=== PATIENT | female | born 1970 | race Caucasian/White ===

== ENCOUNTER → 2018-01-20 08:56 | Outpatient (CLI) | payer OTHER, SELFPAY ==
[2018-01-20 10:58] LABS: Add Manual Diff / Slide Review NO; Basophils Percent Auto 0.5 % (0-2); Hematocrit 35.7 % (36-46); Hemoglobin 12.2 g/dL (12.0-16.0); Lymphocytes Percent Auto 23.7 % (25-40); Mean Corpuscular Volume 91.2 fL (80-100); Monocytes Percent Auto 4.3 % (3-14); Neutrophils Absolute Auto 4000 /uL (3000-5900); Neutrophils Percent Auto 67.5 % (50-75); Platelet Count 274 X10^3/uL (150-400); Red Blood Cell Count 3.92 X10^6/uL (4.0-5.2); Red Cell Distribution Width 14.2 % (11.6-14.8); White Blood Cell Count 5.9 X10^3/uL (4.5-11.0)
[2018-01-20 11:25] LABS: Alanine Aminotransferase 20 IU/L (9-52); Albumin 3.7 g/dL (3.5-5.0); Albumin Globulin Ratio 1.1 (1.0-2.8); Alkaline Phosphatase 94 U/L (38-126); Aspartate Aminotransferase 20 IU/L (14-36); BUN Creatinine Ratio 22.5 (6-22); Bilirubin Total 0.5 mg/dL (0.2-1.3); Blood Urea Nitrogen 18 mg/dL (7-17); Calcium 9.1 mg/dL (8.4-10.2); Carbon Dioxide 28 mmol/L (22-32); Chloride 101 mmol/L (98-107); Estimated Glomerular Filt Rate > 60.0 mL/min (>60); Globulin 3.5 g/dL (1.7-4.1); Glucose 85 mg/dL (70-100); HEMOLYSIS < 15 (0-50); Potassium 4.3 mmol/L (3.4-5.1); Sodium 137 mmol/L (137-145); Total Protein 7.2 g/dL (6.3-8.2)
== END ==
PROVIDERS: PCP Internal Medicine; Visit Provider Physician Assistant
DX: L40.8 Other psoriasis (principal); Z79.899 Other long term (current) drug therapy
CPT/HCPCS: 36415; 80053; 85025

== ENCOUNTER → 2018-07-18 07:16 | Outpatient (CLI) | payer OTHER, SELFPAY ==
[2018-07-18 07:53] LABS: Add Manual Diff / Slide Review NO; Basophils Percent Auto 1.2 % (0-2); Hematocrit 36.9 % (36-46); Hemoglobin 12.3 g/dL (12.0-16.0); Lymphocytes Percent Auto 33.3 % (25-40); Mean Corpuscular HGB Conc 33.4 % (30-36); Mean Corpuscular Hemoglobin 30.8 PG (26-34); Mean Corpuscular Volume 92.3 fL (80-100); Monocytes Percent Auto 6.1 % (3-14); Neutrophils Absolute Auto 2500 /uL (3000-5900); Neutrophils Percent Auto 52.4 % (50-75); Platelet Count 315 X10^3/uL (150-400); Red Cell Distribution Width 14.1 % (11.6-14.8); White Blood Cell Count 4.7 X10^3/uL (4.5-11.0)
[2018-07-18 08:02] LABS: Alanine Aminotransferase 25 IU/L (9-52); Albumin 3.9 g/dL (3.5-5.0); Albumin Globulin Ratio 1.3 (1.0-2.8); Alkaline Phosphatase 87 U/L (38-126); Aspartate Aminotransferase 23 IU/L (14-36); Bilirubin Total 0.4 mg/dL (0.2-1.3); Blood Urea Nitrogen 18 mg/dL (7-17); Calcium 8.9 mg/dL (8.4-10.2); Carbon Dioxide 26 mmol/L (22-32); Chloride 104 mmol/L (98-107); Cholesterol 175 mg/dL (140-199); Estimated Glomerular Filt Rate > 60.0 mL/min (>60); Glucose 93 mg/dL (70-100); HDL Cholesterol 69 mg/dL (40-60); HEMOLYSIS < 15 (0-50); LDL Cholesterol Calculated 78 mg/dL (<100); Sodium 141 mmol/L (137-145); Total Protein 6.9 g/dL (6.3-8.2); Triglycerides 142 mg/dL (35-150)
[2018-07-18 08:28] LABS: Thyroid Stimulating Hormone 0.75 uIU/mL (0.47-4.68)
== END ==
PROVIDERS: PCP Internal Medicine; Visit Provider Internal Medicine
DX: E03.9 Hypothyroidism, unspecified (principal); L40.9 Psoriasis, unspecified
CPT/HCPCS: 36415; 80053; 80061; 84443; 85025

== ENCOUNTER → 2018-11-17 11:49 | Outpatient (CLI) | payer OTHER, SELFPAY ==
--- NOTE | 2018-11-17 | DI.MG.S_ITS ---
BILATERAL DIGITAL SCREENING MAMMOGRAM 3D/2D WITH CAD: 11/17/2018 CLINICAL: Routine screening. Comparison is made to exams dated: 07/20/2017 mammogram, 05/29/2015 mammogram, and 03/16/2013 mammogram - [facility]. The tissue of both breasts is heterogeneously dense. This may lower the sensitivity of mammography. Current study was also evaluated with a Computer Aided Detection (CAD) system. No significant masses, calcifications, or other findings are seen in either breast. There has been no significant interval change. IMPRESSION: NEGATIVE There is no mammographic evidence of malignancy. A 1 year screening mammogram is recommended. This exam was interpreted at Station ID: [id number]. NOTE: For mammograms, a report in lay terms will be sent to the patient. Approximately 15% of breast malignancies will not be visualized mammographically. In the management of a palpable breast mass, a negative mammogram must not discourage biopsy of a clinically suspicious lesion. Electronically Signed By: Mika brand/mukul:11/17/2018 12:54:39 letter sent: Normal Exam ACR BI-RADS Category 1: Negative 3341F
== END ==
PROVIDERS: PCP Internal Medicine; Visit Provider Internal Medicine
DX: Z12.31 Encounter for screening mammogram for malignant neoplasm of breast (principal)
CPT/HCPCS: 77063; 77067

== ENCOUNTER → 2019-04-18 07:14 | Outpatient (CLI) | payer OTHER, SELFPAY ==
[2019-04-18 08:46] LABS: Add Manual Diff / Slide Review NO; Basophils Absolute Auto 0 /uL (0-100); Basophils Percent Auto 0.5 % (0-2); Eosinophils Absolute Auto 300 /uL (0-450); Eosinophils Percent Auto 5.7 % (2-4); Hematocrit 35.8 % (36-46); Lymphocytes Absolute Auto 1500 /uL (1100-4500); Lymphocytes Percent Auto 25.4 % (25-40); Mean Corpuscular HGB Conc 33.6 % (30-36); Mean Corpuscular Hemoglobin 31.3 PG (26-34); Mean Corpuscular Volume 93.3 fL (80-100); Monocytes Absolute Auto 300 /uL (0-900); Monocytes Percent Auto 4.2 % (3-14); Neutrophils Absolute Auto 3900 /uL (1500-7000); Neutrophils Percent Auto 64.2 % (50-75); Platelet Count 276 X10^3/uL (150-400); Red Blood Cell Count 3.83 X10^6/uL (4.0-5.2); Red Cell Distribution Width 14.2 % (11.6-14.8)
[2019-04-18 09:18] LABS: Alanine Aminotransferase 15 IU/L (9-52); Albumin 3.7 g/dL (3.5-5.0); Albumin Globulin Ratio 1.2 (1.0-2.8); Alkaline Phosphatase 97 U/L (38-126); Aspartate Aminotransferase 15 IU/L (14-36); Bilirubin Total 0.4 mg/dL (0.2-1.3); Blood Urea Nitrogen 18 mg/dL (7-17); Calcium 9.5 mg/dL (8.4-10.2); Carbon Dioxide 26 mmol/L (22-32); Chloride 102 mmol/L (98-107); Estimated Glomerular Filt Rate > 60.0 mL/min (>60); Glucose 88 mg/dL (70-100); HEMOLYSIS < 15 (0-50); Potassium 4.6 mmol/L (3.4-5.1); Sodium 137 mmol/L (137-145); Total Protein 6.7 g/dL (6.3-8.2)
== END ==
PROVIDERS: PCP Internal Medicine; Visit Provider Physician Assistant
DX: L40.8 Other psoriasis (principal)
CPT/HCPCS: 36415; 80053; 85025

== ENCOUNTER → 2019-11-02 07:52 | Outpatient (CLI) | payer OTHER, SELFPAY ==
--- NOTE | 2019-11-02 | DI.CT.S_ITS ---
PROCEDURE: CT SINUS SCREEN WO CON INDICATIONS: Acute sinusitis, unspecified TECHNIQUE: Noncontrast 3.0 mm axial images acquired from the frontal sinuses to the mid-sella, with coronal and sagittal reformats. For radiation dose reduction, the following was used: automated exposure control, adjustment of mA and/or kV according to patient size. COMPARISON: None. FINDINGS: Image quality: Excellent. Maxillary Sinuses: No bony remodeling or destruction. Sinuses are clear. Ethmoid Air Cells: No bony remodeling or destruction. Sinuses are clear. Sphenoid Sinuses: No bony remodeling or destruction. Sinuses are clear. Frontal Sinuses: No bony remodeling or destruction. Sinuses are clear. Ostiomeatal Complexes: Ostiomeatal complexes are patent. No Suresh cells. Miscellaneous: Visualized intra-orbital contents are normal. No alayna bullosa or paradoxical turbinate curvature. There is mild nasal septal deviation to the left. Midportion between the anterior and posterior nasal septum is a leftward osteophyte at the septum measuring 6 mm, somewhat narrowing the left nasal airway. IMPRESSION: Prominent leftward osteophyte off the nasal septum somewhat narrows the left nasal airway. Mild leftward nasal septal deviation. 2. Otherwise negative sinus CT. Dictated by: Garcia Carrillo M.D. on 11/02/2019 at 9:09 Approved by: Garcia Carrillo M.D. on 11/02/2019 at 9:13
== END ==
PROVIDERS: PCP Internal Medicine; Referring Provider Internal Medicine; Visit Provider Internal Medicine
DX: J01.90 Acute sinusitis, unspecified (principal); J34.2 Deviated nasal septum
CPT/HCPCS: 70486

== ENCOUNTER → 2020-08-09 09:56 | Outpatient (CLI) | payer OTHER, SELFPAY ==
--- NOTE | 2020-08-09 | DI.MG.S_ITS ---
BILATERAL DIGITAL SCREENING MAMMOGRAM 3D/2D WITH CAD: 08/09/2020 CLINICAL: Routine screening. Comparison is made to exams dated: 11/17/2018 mammogram, 07/20/2017 mammogram, 05/29/2015 mammogram, and 03/16/2013 mammogram - [facility]. There are scattered fibroglandular elements in both breasts. Current study was also evaluated with a Computer Aided Detection (CAD) system. No significant masses, calcifications, or other findings are seen in either breast. There has been no significant interval change. IMPRESSION: NEGATIVE There is no mammographic evidence of malignancy. A 1 year screening mammogram is recommended. This exam was interpreted at Station ID: [id number]. NOTE: For mammograms, a report in lay terms will be sent to the patient. Approximately 15% of breast malignancies will not be visualized mammographically. In the management of a palpable breast mass, a negative mammogram must not discourage biopsy of a clinically suspicious lesion. Electronically Signed By: Mika brand/mukul:08/11/2020 07:37:31 letter sent: Normal Exam ACR BI-RADS Category 1: Negative 3341F
== END ==
PROVIDERS: PCP Internal Medicine; Referring Provider Internal Medicine; Visit Provider Internal Medicine
DX: Z12.31 Encounter for screening mammogram for malignant neoplasm of breast (principal)
CPT/HCPCS: 77063; 77067

== ENCOUNTER → 2020-09-26 11:10 | Outpatient (CLI) | payer OTHER, SELFPAY ==
--- NOTE | 2020-09-26 | DI.RAD.S_ITS ---
PROCEDURE: XR ANKLE RT MIN 3V INDICATIONS: RIGHT ANKLE PAIN TECHNIQUE: 3 views of the ankle were acquired. COMPARISON: [facility], , ANKLE 3 VIEWS LEFT, 03/24/2010, 20:14. FINDINGS: Bones: No fractures or dislocations. Ankle mortise is normally aligned. No suspicious bony lesions. Soft tissues: No tibiotalar joint effusion. Achilles tendon appears normal. IMPRESSION: No trauma found. Dictated by: Donnie Chester M.D. on 09/26/2020 at 12:49 Approved by: Donnie Chester M.D. on 09/26/2020 at 12:50
--- NOTE | 2020-09-26 | DI.US.S_ITS ---
PROCEDURE: US THYROID INDICATIONS: NODULE TECHNIQUE: Real-time scanning was performed of the thyroid gland, with image documentation. COMPARISON: None. FINDINGS: Right: Thyroid lobe measures 4 x 1.2 x 1.4 cm. Left: Thyroid lobe measures 3.5 x 1.1 x 1 cm. Isthmus: 2.2 mm thick. The thyroid demonstrates a generalized heterogeneous appearance, yet without focal nodules identified. IMPRESSION: Heterogeneous thyroid, yet without discrete nodules seen on either side. Dictated by: Timothy Kiran M.D. on 09/26/2020 at 12:15 Approved by: Timothy Kiran M.D. on 09/26/2020 at 12:16
== END ==
PROVIDERS: PCP Internal Medicine; Referring Provider Internal Medicine; Visit Provider Internal Medicine
DX: E04.1 Nontoxic single thyroid nodule (principal); M25.571 Pain in right ankle and joints of right foot
CPT/HCPCS: 73610; 76536

== ENCOUNTER → 2021-08-10 07:49 | Outpatient (CLI) | payer OTHER, SELFPAY ==
--- NOTE | 2021-08-10 | DI.MG.S_ITS ---
BILATERAL DIGITAL SCREENING MAMMOGRAM 3D/2D WITH CAD: 08/10/2021 CLINICAL: Routine screening. Comparison is made to exams dated: 08/09/2020 mammogram, 11/17/2018 mammogram, and 07/20/2017 mammogram - [facility]. There are scattered fibroglandular elements in both breasts. Current study was also evaluated with a Computer Aided Detection (CAD) system. There is a possible asymmetry in the left breast anterior depth central to the nipple seen on the craniocaudal view only. No other significant masses, calcifications, or other findings are seen in either breast. IMPRESSION: INCOMPLETE: NEEDS ADDITIONAL IMAGING EVALUATION The possible asymmetry in the left breast is indeterminate. A diagnostic mammogram and ultrasound is recommended. This exam was interpreted at Station ID: [id number]. NOTE: For mammograms, a report in lay terms will be sent to the patient. Approximately 15% of breast malignancies will not be visualized mammographically. In the management of a palpable breast mass, a negative mammogram must not discourage biopsy of a clinically suspicious lesion. Electronically Signed By: Sahil Sue M.D., jr/mukul:08/10/2021 11:33:36 letter sent: Additional Imaging Needed ACR BI-RADS Category 0: Incomplete 3340F
== END ==
PROVIDERS: PCP Internal Medicine; Referring Provider Internal Medicine; Visit Provider Internal Medicine
DX: Z12.31 Encounter for screening mammogram for malignant neoplasm of breast (principal)
CPT/HCPCS: 77063; 77067

== ENCOUNTER → 2021-10-20 08:45 | Outpatient (CLI) | payer OTHER, SELFPAY ==
--- NOTE | 2021-10-20 | DI.MG.S_ITS ---
UNILATERAL LEFT DIGITAL DIAGNOSTIC MAMMOGRAM 3D/2D WITH ADDITIONAL VIEWS: 10/20/2021 CLINICAL: Additional evaluation requested from prior study. Comparison is made to exams dated: 08/10/2021 mammogram, 08/09/2020 mammogram, 11/17/2018 mammogram, and 07/20/2017 mammogram - [facility]. There are scattered fibroglandular elements in left breast. There is a possible asymmetry in the left breast anterior depth central to the nipple seen on the craniocaudal view only. This is less prominent. No other significant masses or calcifications are seen in the breast. IMPRESSION: INCOMPLETE: NEEDS ADDITIONAL IMAGING EVALUATION The possible asymmetry in the left breast remains indeterminate. A targeted ultrasound is recommended and will immediately follow. This exam was interpreted at Station ID: [id number]. NOTE: For mammograms, a report in lay terms will be sent to the patient. Approximately 15% of breast malignancies will not be visualized mammographically. In the management of a palpable breast mass, a negative mammogram must not discourage biopsy of a clinically suspicious lesion. Electronically Signed By: Sergio Sánchez M.D. slc/:10/20/2021 09:25:41 ACR BI-RADS Category 0: Incomplete 3340F
--- NOTE | 2021-10-20 | DI.US.S_ITS ---
LIMITED ULTRASOUND OF LEFT BREAST: 10/20/2021 CLINICAL: Patient returns today to evaluate an asymmetry in the left breast. Comparison is made to exams dated: 10/20/2021 mammogram, 08/10/2021 mammogram, 08/09/2020 mammogram, 11/17/2018 mammogram, 07/20/2017 mammogram, and 05/29/2015 mammogram - [facility]. Color flow and real-time ultrasound of the left breast were performed. Molina scale images of the real-time examination were reviewed. No significant abnormalities were seen sonographically in the left breast in the region of possible asymmetry. IMPRESSION: NEGATIVE There is no sonographic evidence of malignancy. A 1 year screening mammogram is recommended. Exam findings were conveyed to the patient. This exam was interpreted at Station ID: [id number]. Electronically Signed By: Sergio Sánchez M.D. slc/:10/20/2021 10:47:27 letter sent: Normal Exam Ultrasound BI-RADS: 1 Negative
== END ==
PROVIDERS: PCP Internal Medicine; Referring Provider Internal Medicine; Visit Provider Internal Medicine
DX: R92.8 Other abnormal and inconclusive findings on diagnostic imaging of breast (principal)
CPT/HCPCS: 76642; 77065; G0279

== ENCOUNTER → 2022-11-27 09:49 | Outpatient (CLI) | payer OTHER, SELFPAY ==
--- NOTE | 2022-11-27 09:50 | DI.MG.S_ITS ---
BILATERAL DIGITAL SCREENING MAMMOGRAM 3D/2D WITH CAD: 11/27/2022 CLINICAL: Routine screening. Comparison is made to exams dated: 10/20/2021 mammogram, 08/10/2021 mammogram, 08/09/2020 mammogram, and 11/17/2018 mammogram - [facility]. There are scattered areas of fibroglandular density in both breasts (category b / 25%-50% glandular tissue). Current study was also evaluated with a Computer Aided Detection (CAD) system. No significant masses, calcifications, or other findings are seen in either breast. There has been no significant interval change. IMPRESSION: NEGATIVE There is no mammographic evidence of malignancy. A 1 year screening mammogram is recommended. Based on the Tyrer Cuzick model (a risk assessment model) the patient's lifetime risk is 7.6% and her 10 year risk is 1.8%. According to the ACR, ACS, and NCCN guidelines, an annual breast MRI exam along with mammogram is recommended if the patient's lifetime risk is 20% or greater. This exam was interpreted at Station ID: [id number]. NOTE: For mammograms, a report in lay terms will be sent to the patient. Approximately 15% of breast malignancies will not be visualized mammographically. In the management of a palpable breast mass, a negative mammogram must not discourage biopsy of a clinically suspicious lesion. Electronically Signed By: Mika brand/mukul:11/29/2022 07:32:27 letter sent: Normal Exam ACR BI-RADS Category 1: Negative 3341F
== END ==
PROVIDERS: PCP Internal Medicine; Referring Provider Internal Medicine; Visit Provider Internal Medicine
DX: Z12.31 Encounter for screening mammogram for malignant neoplasm of breast (principal)
CPT/HCPCS: 77063; 77067

== ENCOUNTER 2023-03-18 08:21 | Day surgery (SDC) | payer OTHER, SELFPAY ==
[2023-03-18 08:37] VITALS: BP 122/81; PULSE 76; RESP 16; TEMP 35.9; O2SAT 99; BMI 33.3
[2023-03-18] MEDS: LACTATED RINGERS 1,000 ML 84 ML IV (08:50)
--- NOTE | 2023-03-18 09:36 | P.HP_ITS ---
History of Present Illness History of Present Illness Date Patient Seen: 03/18/23 Time Patient Seen: 09:36 Chief complaint: Colonoscopy, family history of colon cancer Narrative: 52-year-old female presents today for her 1st screening colonoscopy. Her father from colon cancer as well as his father. She has done fecal stool samples in the past and always had those come back negative. She denies any concerning symptoms no bleeding changes in bowel habits or cramping abdominal pains. This is the 1st time she is ever even had anesthesia. She has no further questions or concerns in his ready to proceed. [facility] Medical History (Updated 03/18/23 @ 09:38 by Phyllis Correa MD) Eczema Encounter for screening colonoscopy Hypothyroidism Seasonal allergies Family History (Updated 03/23/16 @ 00:00 by Conversion Provider) Brother Age: 53 Diabetes mellitus Father Age: 80 Congestive heart failure Arrhythmia Anemia Grandmother Stroke Mother Age: 78 Hypertension Grandfather Stomach cancer Grandmother Mental health problem Sister Age: 57 Diabetes mellitus Social History household members: spouse Smoking Status: Never smoker alcohol intake: never Meds Home Medications and Allergies Home Medications Medication Instructions Recorded Confirmed Type pimecrolimus 1 % topical cream 1 donis topical QDAY ##0 06/07/17 07/19/18 History (Elidel) levothyroxine 75 mcg tablet 75 mcg PO QAM #90 tabs 07/19/18 03/18/23 Rx (Synthroid) drospirenone 3 mg-ethinyl 1 tab PO QDAY #112 tabs 08/02/18 03/18/23 Rx estradiol 0.03 mg tablet (Ocella) Allergies Allergy/AdvReac Type Severity Reaction Status Date / Time No Known Drug Allergies Allergy Verified 03/18/23 08:33 Exam Vital Signs (past 8 hours): - 03/18/23 08:37 Temperature 96.6 F L Pulse Rate 76 Respiratory Rate 16 Blood Pressure 122/81 Pulse Oximetry 99 Oxygen Delivery Method Room Air Oxygen Delivery Method Room Air Const General: cooperative, healthy appearing and comfortable HENMT Head: normal to inspection Eyes General: appearance normal, both eyes and all related structures Resp Effort & Inspection: normal respiratory effort and able to speak in complete sentences GI Inspection: normal to inspection Palpation: soft and No tender Assessment & Plan Assessment and plan (1) Family history of colon cancer in father: Status: Acute (2) Encounter for screening colonoscopy: Status: Acute Assessment & Plan narrative: Presents today for screening colonoscopy I discussed the risks benefits and alternatives including but not limited to perforation of the colon and an incomplete exam she fully understands these risks and would like to proceed.
[2023-03-18 10:22] VITALS: BP 135/86; PULSE 69; RESP 12; TEMP 36.2; O2SAT 100
[2023-03-18 10:31] VITALS: BP 134/91; PULSE 72; RESP 24; O2SAT 100
--- NOTE | 2023-03-18 10:34 | PM.OP.COLON ---
Operative Date/Time/Diagnoses Date of procedure: 03/18/23 Time of procedure: 10:34 Pre-op diagnosis: Colon cancer screening, family history of colon cancer in father Post-op diagnosis: same Procedure & Clinicians Study performed: Colonoscopy Same procedure as scheduled: Yes Indications: Colon cancer screening, family history in father Surgeon: Phyllis Correa Procedure Notes Procedure in detail: Patient was taken to the endoscopy suite and placed in a left lateral decubitus position. A time-out was performed. With the help of anesthesiologist conscious sedation was induced and monitored throughout the case. A digital rectal exam was performed and there were no masses or strictures. The colonoscope was introduced into the anal canal and advanced through to the cecum. A photograph of the appendiceal orifice was obtained. The bowel prep was good [place] bowel prep score of 2. There were a few scattered diverticula in the sigmoid colon which were photographed. There was some tortuosity within the sigmoid colon as well. The scope was then withdrawn for a total of 12 minutes and no polyps were seen. The scope was then retroflexed and a photograph of the internal hemorrhoidal piles was obtained. Specimen(s): none sent Complications: none Post-procedure Recommendations: Colonoscopy in 5 years Plan for aftercare: Because of diverticula I do recommend a daily fiber supplement. Because of your family history of colon cancer usually every 5 year screening intervals are recommended though you have no polyps that were seen today.
[2023-03-18 10:36] VITALS: BP 125/88; PULSE 64; RESP 12; O2SAT 98
[2023-03-18 10:39] VITALS: BP 126/49; PULSE 66; RESP 10; O2SAT 100
[2023-03-18 10:44] VITALS: BP 127/79; PULSE 65; RESP 14; O2SAT 100
== END 2023-03-18 11:01 | disposition home or self-care (01) ==
PROVIDERS: PCP Internal Medicine; Referring Provider Surgery; Visit Provider Surgery
PROC: 0DJD8ZZ Inspection of Lower Intestinal Tract, Via Natural or Artificial Opening Endoscopic (ICD-10-PCS; CPT 45378; principal; 2023-03-18 09:30)
DX: Z12.11 Encounter for screening for malignant neoplasm of colon (principal); Z80.0 Family history of malignant neoplasm of digestive organs; K57.30 Diverticulosis of large intestine without perforation or abscess without bleeding
CPT/HCPCS: 45378; J2704

== ENCOUNTER → 2024-01-30 16:26 | Outpatient (CLI) | payer OTHER, SELFPAY ==
--- NOTE | 2024-01-30 16:27 | DI.MG.S_ITS ---
BILATERAL DIGITAL SCREENING MAMMOGRAM 3D/2D WITH CAD: 01/30/2024 CLINICAL: Routine screening. Comparison is made to exams dated: 11/27/2022 mammogram, 08/10/2021 mammogram, 08/09/2020 mammogram, and 11/17/2018 mammogram - [facility]. There are scattered areas of fibroglandular density in both breasts (category b / 25%-50% glandular tissue). Current study was also evaluated with a Computer Aided Detection (CAD) system. No significant masses, calcifications, or other findings are seen in either breast. There has been no significant interval change. IMPRESSION: NEGATIVE There is no mammographic evidence of malignancy. A 1 year screening mammogram is recommended. Based on the Tyrer Cuzick model (a risk assessment model) the patient's lifetime risk is 7.8% and her 10 year risk is 1.9%. According to the ACR, ACS, and NCCN guidelines, an annual breast MRI exam along with mammogram is recommended if the patient's lifetime risk is 20% or greater. This exam was interpreted at Station ID: [id number]. NOTE: For mammograms, a report in lay terms will be sent to the patient. Approximately 15% of breast malignancies will not be visualized mammographically. In the management of a palpable breast mass, a negative mammogram must not discourage biopsy of a clinically suspicious lesion. Electronically Signed By: Sergio vides/mukul:02/02/2024 16:00:05 letter sent: Normal Exam ACR BI-RADS Category 1: Negative 3341F
== END ==
PROVIDERS: PCP Internal Medicine; Referring Provider Internal Medicine; Visit Provider Internal Medicine
DX: Z12.31 Encounter for screening mammogram for malignant neoplasm of breast (principal); R92.323 Mammographic fibroglandular density, bilateral breasts
CPT/HCPCS: 77063; 77067

== ENCOUNTER → 2025-02-27 16:09 | Outpatient (CLI) | payer OTHER, SELFPAY ==
--- NOTE | 2025-02-27 16:12 | DI.MG.S_ITS ---
MM screening mammo BI: 02/27/2025. BI-RADS: 1 CLINICAL: 54-year old female for bilateral screening mammogram. Tyrer-Cuzick lifetime risk of 8.6%. No personal or first-degree family history of breast cancer. PRIOR EXAMS 01/30/2024, 11/27/2022, 10/20/2021, 08/10/2021, MAMMOGRAPHY TECHNIQUE: 2D and 3D (tomosynthesis) digital mammographic views obtained, with additional images as needed for full coverage. Current study was also evaluated with a Computer Aided Detection (CAD) system. DENSITY B. There are scattered areas of fibroglandular density. MAMMOGRAPHY FINDINGS Bilateral: No suspicious mass, asymmetry, microcalcification, or other abnormality seen. IMPRESSION: * No evidence of malignancy. RECOMMENDATIONS Bilateral * Annual screening mammography. OVERALL ASSESSMENT CATEGORY BI-RADS-1: Negative. The [employer] recommends annual screening mammography beginning at age 40 for women with average risk of breast cancer. ELECTRONICALLY SIGNED: Mae Martines M.D. on 02/28/2025 at 02:06:11 PM PT Interpreting Station ID: [id number]
== END ==
PROVIDERS: PCP Internal Medicine; Referring Provider Internal Medicine; Visit Provider Internal Medicine
DX: Z12.31 Encounter for screening mammogram for malignant neoplasm of breast (principal)
CPT/HCPCS: 77063; 77067